=== PATIENT | female | born 1975 | race Caucasian/White ===

== ENCOUNTER 2016-12-29 12:13 | Emergency (ER) | payer OTHER ==
[2016-12-29 12:21] VITALS: TEMP 98.1; BMI 21.4
--- NOTE | 2016-12-29 13:21 | PDOC ---
History of Present Illness - General Chief Complaint: Syncope/Near Syncope Stated Complaint: THROAT PAIN-PASSED OUT YESTERAY Time Seen by Provider: 12/29/16 13:02 - History of Present Illness Initial Comments: 12/29/16 14:02 The patient is a 41 year old female with no significant PMH who presents for evaluation of sore throat and a syncopal episode. The patient reports a 3 day history of sore throat that she describes a different then sore throats she has had in the past. She denies fevers, chills, SOB, chest pain, or cough. She also reports a syncopal episode 1 day ago where she states that she was washing dishes and began feeling nauseated due to her sore throat. She states that she felt like she was going to pass out and sat down on the ground before blacking out. She denies head trauma, headache, heart palpitations, abdominal pain, or changes with urination or bowel movements. Past History - Past Medical History Allergies/Adverse Reactions: Allergies Allergy/AdvReac Type Severity Reaction Status Date / Time No Known Allergies Allergy Verified 12/29/16 12:21 Home Medications: Ambulatory Orders Amox-Tr/K Cl [Augmentin - 500Mg Tablet] 1 tab PO BID #14 tab 12/29/16 COPD: No - Suicide/Smoking/Psychosocial Hx Smoking History: Never smoked Hx Alcohol Use: No Drug/Substance Use Hx: No Review of Systems - Review of Systems Comments:: 12/29/16 14:07 Constitutional: No fevers, chills, fatigue, malaise HEENT: Sore throat. No Rhinorrhea, nasal congestion, visual changes Cardiovascular: Syncope. No chest pain, palpitations, lightheadedness Respiratory: No Cough, SOB, Hemoptysis, Gastrointestinal: No Abdominal pain, Nausea, Vomiting, Constipation, Diarrhea, Melena Genitourinary: No Dysuria, Frequency, Urgency, Hesitancy, Hematuria, Flank pain Musculoskeletal: No Myalgia, arthralgia Skin: No rashes, bruising, pallor Neurologic: No Headache, Dizziness, Numbness, Weakness, or Tingling Psychiatric: No Hallucinations. No SI or HI *Physical Exam - Vital Signs Last Vital Signs Temp Pulse Resp BP Pulse Ox 98.1 F 73 18 109/72 100 12/29/16 12:17 12/29/16 12:17 12/29/16 12:17 12/29/16 12:17 12/29/16 12:17 - Physical Exam Comments: 12/29/16 14:09 General Appearance: Nourished. No Apparent Distress HEENT: EOMI, MARY. Mild Pharyngeal Erythema. No Tonsillar Exudate, Tonsillar Erythema Neck: No Cervical Lymphadenopathy Respiratory/Chest: Lungs Clear, Normal Breath Sounds. No Crackles, Rales, Rhonchi, Wheezing Cardiovascular: Regular Rhythm, Regular Rate. No Murmur, Gallops, Rubs Gastrointestinal/Abdominal: Normal Bowel Sounds, Soft. No Guarding, Rebound, Tenderness Musculoskeletal: No CVA Tenderness Extremity: Normal Capillary Refill Integumentary: Normal Color, Dry, Warm Neurologic: chemistry laboratory technician II-XII NML intact, Fully Oriented, Alert, Normal Mood/Affect, Normal Response, Motor Strength 5/5. Normal Finger to Nose and Heel to [facility]end[facility] ED Treatment Course - LABORATORY CBC & Chemistry Diagram: 12/29/16 13:29 12/29/16 14:00 Medical Decision Making - Medical Decision Making 12/29/16 14:09 The patient is a 41 year old female with no significant PMH who presents for evaluation of sore throat and a syncopal episode. Differential includes but is not limited to: Strep pharyngitis, Viral pharyngitis, Anemia, metabolic derangement. Given her physical exam and that she is afebrile here in the ED, it is likely her sore throat is due to a viral pharyngitis, however we will send a rapid strep to evaluate further. Her syncopal episode appears to be vaso -vagal in nature. We will obtain a cbc, cmp, urine preg, UA and EKG to evaluate for other etiologies. We will continue to monitor and reassess. 12/29/16 15:05 cbc, cmp, UA, EKG are unremarkable. Urine preg is negative. Rapid strep is positive for strep. Her symptoms are likely due to strep pharyngitis. We will give her a dose of augmentin here in the ED and will discharge her home on a 7 day course of augmentin with PCP follow up. We discussed the results with the patient who voiced understanding and is agreeable with the plan. *DC/Admit/Observation/Transfer Diagnosis at time of Disposition: Strep pharyngitis - Discharge Dispostion Disposition: HOME Condition at time of disposition: Good Admit: No - Prescriptions Prescriptions: Amox-Tr/K Cl [Augmentin - 500Mg Tablet] 1 tab PO BID #14 tab - Referrals Referrals: Vahe Calix MD [Primary Care Provider] - - Patient Instructions Printed Discharge Instructions: DI for Strep Throat Additional Instructions: Please return to the ER if you experience concerning or worsening symptoms including worsening fevers, chills, cough, or difficulty breathing. Your symptoms are likely due to strep throat. Your rapid strep test was positive here in the ED. We have sent a prescription of antibiotics to your pharmacy that you should take twice a day for 7 days. Please call to schedule a follow up appointment with your primary care provider within 1 week to discuss your ER visit and be re-evaluated.
[2016-12-29] MEDS ORDERED: SODIUM CHLORIDE 1,000 ML IV STA (13:34)
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
[2016-12-29 14:19] LABS: BASOPHIL 0.4 % (0-2.0); EOSINOPHIL 1.5 % (0-4.5); MCH 32.2 pg (25.7-33.7); MCHC 33.8 g/dl (32.0-36.0); MEAN CELL VOLUME 95.3 fl (80-96); MEAN PLT VOLUME 7.7 fl (7.5-11.1); PLATELET COUNT 176 K/MM3 (134-434); RDW 12.7 % (11.6-15.6); WHITE BLOOD COUNT 6.3 K/mm3 (4.0-10.0)
[2016-12-29 14:26] LABS: URINE APPEARANCE SLCLOUDY; URINE BILIRUBIN NEGATIVE (NEGATIVE); URINE BLOOD 3+ (NEGATIVE); URINE COLOR YELLOW; URINE GLUCOSE (UA) NEGATIVE (NEGATIVE); URINE KETONE NEGATIVE (NEGATIVE); URINE NITRITE NEGATIVE (NEGATIVE); URINE PROTEIN NEGATIVE (NEGATIVE); URINE UROBILINOGEN NEGATIVE mg/dL (0.2-1.0)
[2016-12-29 14:39] LABS: URINE MUCUS RARE; URINE RBC 596 /hpf (0-3); URINE WBC 1 /hpf (3-5)
[2016-12-29 14:41] LABS: ALBUMIN 3.4 g/dl (3.4-5.0); ANION GAP 4 (8-16); BILIRUBIN,TOTAL 1.2 mg/dL (0.2-1.0); CO2 29 mmol/L (21-32); CREATININE 0.8 mg/dL (0.55-1.02); GLUCOSE,RANDOM 100 mg/dL (74-106); SGOT/AST 9 U/L (15-37); SGPT/ALT 18 U/L (12-78)
[2016-12-29 14:42] LABS: ALK PHOS 65 U/L (45-117); TOT PROT 6.4 g/dl (6.4-8.2)
[2016-12-29] MEDS ORDERED: AMOX TR/POT CLAV 500MG/125MG TABLETS (FP) PO ONE (14:54)
[2016-12-29] MEDS ORDERED: AMOX TR/POT CLAV 500MG/125MG TABLETS (FP) ONE (15:04)
[2016-12-29 15:22] VITALS: BP 97/63; PULSE 51
[2016-12-29 18:51] LABS: URINE LEUK ESTERASE Negative (NEGATIVE)
--- NOTE | 2016-12-30 17:06 | EKG ---
Test Reason : Blood Pressure : / mmHG Vent. Rate : 052 BPM Atrial Rate : 052 BPM P-R Int : 186 ms QRS Dur : 080 ms QT Int : 444 ms P-R-T Axes : 073 069 049 degrees QTc Int : 412 ms SINUS BRADYCARDIA OTHERWISE NORMAL ECG NO PREVIOUS ECGS AVAILABLE Confirmed by NICOLE CARTER MD ([id number]) on 12/30/2016 5:06:35 PM Referred By: Confirmed By:NICOLE CARTER MD
== END 2016-12-29 15:23 | disposition home or self-care (01) ==
LOC: JER 12:13
PROC: 3E0337Z Introduction of Electrolytic and Water Balance Substance into Peripheral Vein, Percutaneous Approach (ICD-10-PCS; principal; 2016-12-29)
DX: J02.0 Streptococcal pharyngitis (principal)
CPT/HCPCS: 36415; 80053; 81003; 81015; 84703; 85025; 87070; 87430; 93005; 93010; 99284-25